=== PATIENT | female | born 1950 ===

== ENCOUNTER 2020-08-06 14:59 | Outpatient (CLI) | payer OTHER | END 2020-08-06 15:10 | disposition home or self-care (01) | LOC: LAB 14:59 | DX: Z20.828 Contact with and (suspected) exposure to other viral communicable diseases (principal) ==

== ENCOUNTER 2023-03-26 06:44 | Emergency (ER) | payer OTHER ==
[~2023-03-26] VITALS: Ht 149.9 cm; Wt 53.1 kg
[2023-03-26] MEDS ORDERED: METFORMIN HCL1000 M3 PO (07:11)
[2023-03-26] MEDS ORDERED: TOPROL XL25 M1 PO (07:11)
[2023-03-26] MEDS ORDERED: SIMVASTATIN40 MG PO (07:11)
[2023-03-26] MEDS ORDERED: SYNTHROID88 MCG PO (07:11)
[2023-03-26] MEDS ORDERED: EVISTA60 MG PO (07:12)
[2023-03-26] MEDS ORDERED: CHILDREN'S ASPI81 MG PO (07:12)
[2023-03-26] MEDS ORDERED: GLIMEPIRIDE2 MG PO (07:12)
[2023-03-26] MEDS ORDERED: METRONIDAZOLE500 MG PO (11:43)
[2023-03-26] MEDS ORDERED: DICY20TA PO (11:43)
[2023-03-26] MEDS ORDERED: CIPRO500 MG PO (11:43)
[2023-03-26] MEDS ORDERED: PEPCID AC20 MG PO (11:43)
[2023-03-26] MEDS ORDERED: INTESTINEX680 M1 PO (11:43)
== END 2023-03-26 14:13 | disposition home or self-care (01) ==
LOC: ER 06:44
DX: K57.32 Diverticulitis of large intestine without perforation or abscess without bleeding (principal); E11.9 Type 2 diabetes mellitus without complications; Z79.84 Long term (current) use of oral hypoglycemic drugs; I10 Essential (primary) hypertension; E78.00 Pure hypercholesterolemia, unspecified; E03.9 Hypothyroidism, unspecified
CPT/HCPCS: 36415; 74177; 96365; 96366; 99284; J1885; J3490; J7042; Q9965

== ENCOUNTER 2024-08-30 10:19 | Emergency (ER) | payer OTHER ==
[~2024-08-30] VITALS: Ht 149.9 cm; Wt 54.9 kg
[~2024-08-30 10:19] MED LIST: CHILDREN'S ASPI81 MG PO; CIPRO500 MG PO; DICY20TA PO; EVISTA60 MG PO; GLIMEPIRIDE2 MG PO; INTESTINEX680 M1 PO; METFORMIN HCL1000 M3 PO; METRONIDAZOLE500 MG PO; PEPCID AC20 MG PO; SIMVASTATIN40 MG PO; SYNTHROID88 MCG PO; TOPROL XL25 M1 PO
[2024-08-30] MEDS ORDERED: BARIUM SULFATE 450 ML ORAL.SUSP PO ONE (11:37)
[2024-08-30 11:42] LABS: HEMATOCRIT 35.7 % (36.0-45.00); HEMOGLOBIN 11.8 g/dL (12.0-15.00); MEAN CELL VOLUME 93.6 fL (80.00-100.00); MEAN CORPUSCULAR HEMOGLOBIN 30.9 pg (27.00-32.0); MEAN CORPUSCULAR HGB CONC 33.1 g/dl (32.0-36.0); PLATELET COUNT 223 K/uL (150-450); RED BLOOD COUNT 3.82 M/uL (4.00-6.00); RED CELL DISTRIBUTION WIDTH 14.6 % (11.5-14.5)
[2024-08-30 12:40] LABS: CALCIUM 8.9 mg/dL (8.5-10.1); CREATININE SERUM 1.07 mg/dL (0.55-1.02); GFR 49.99; POTASSIUM 3.43 mEq/L (3.5-5.1)
[2024-08-30] MEDS ORDERED: CIPROFLOXACIN IN 5 % DEXTROSE 400 MG/200 ML PIGGYBAG IV ONE ×2 (14:45→15:06)
[2024-08-30] MEDS ORDERED: METRONIDAZOLE/SODIUM CHLORIDE 500 MG/100 ML PIGGYBACK IV ONE ×2 (14:45→15:06)
== END 2024-08-30 18:16 | disposition home or self-care (01) ==
LOC: ER 10:19
PROVIDERS: Emergency Medicine
DX: K57.92 Diverticulitis of intestine, part unspecified, without perforation or abscess without bleeding (principal); R10.9 Unspecified abdominal pain; I10 Essential (primary) hypertension; E03.8 Other specified hypothyroidism; E11.9 Type 2 diabetes mellitus without complications; Z79.84 Long term (current) use of oral hypoglycemic drugs
CPT/HCPCS: 36415; 74177; 96365; 99284; J0744; J3490; Q9965